=== PATIENT | female | born 1960 | race Caucasian/White ===

== ENCOUNTER → 2016-07-28 | Outpatient (CLI) | payer OTHER ==
[~2016-07-28] MED LIST: ASPI81TA82 PO; METO50TA PO; PERC5TAB12 PO; ROSU10 PO; SYNT137T PO
[2016-07-28 07:00] LABS: AUTOMATED NEUTROPHIL # 5.7 TH/MM3 (1.8-7.7); BASOPHIL # 0.1 TH/MM3 (0-0.2); EOSINOPHIL # 0.1 TH/MM3 (0-0.4); EOSINOPHIL % 1.2 % (0.0-4.0); HEMATOCRIT 45.4 % (35.0-46.0); HEMO FLAGS DIFF FINAL; LYMPH % 40.5 % (9.0-44.0); LYMPHOCYTE # 4.6 TH/MM3 (1.0-4.8); MEAN CELL VOLUME 91.9 FL (80.0-100.0); MEAN CORPUSCULAR HEMOGLOBIN 31.1 PG (27.0-34.0); MEAN CORPUSCULAR HGB CONC 33.9 % (32.0-36.0); MONO % 6.8 % (0.0-8.0); NEUT % 50.5 % (16.0-70.0); PLATELET COUNT 285 TH/MM3 (150-450); RED BLOOD COUNT 4.94 MIL/MM3 (4.00-5.30); RED CELL DISTRIBUTION WIDTH 16.1 % (11.6-17.2); WHITE BLOOD COUNT 11.3 TH/MM3 (4.0-11.0)
[2016-07-28 07:43] LABS: ALKALINE PHOSPHATASE 117 U/L (45-117); FREE T4 1.69 NG/DL (0.76-1.46); TOTAL BILIRUBIN ADULT 1.3 MG/DL (0.2-1.0)
[2016-07-28 07:53] LABS: ALT (GPT) 746 U/L (10-53); ANION GAP 9 MEQ/L (5-15); AST (GOT) 311 U/L (15-37); BLOOD UREA NITROGEN 19 MG/DL (7-18); CHLORIDE 103 MEQ/L (98-107); GLOMERULAR FILTRATION RATE 78 ML/MIN (>89); GLUCOSE,FASTING 121 MG/DL (74-99); LDL CHOLESTEROL 109 MG/DL (0-99); POTASSIUM 4.5 MEQ/L (3.5-5.1); SODIUM (NA) 136 MEQ/L (136-145)
== END ==
LOC: CLAB 06:35
PROVIDERS: ATTEND Internal Medicine
DX: E78.5 Hyperlipidemia, unspecified (principal); E03.9 Hypothyroidism, unspecified; I10 Essential (primary) hypertension
CPT/HCPCS: 36415; 80053; 80061; 84439; 84443; 84480; 85025

== ENCOUNTER → 2016-09-23 | Outpatient (CLI) | payer OTHER ==
[2016-09-23 07:10] LABS: AUTOMATED NEUTROPHIL # 2.9 TH/MM3 (1.8-7.7); BASOPHIL # 0.1 TH/MM3 (0-0.2); BASOPHIL % 0.7 % (0.0-2.0); EOSINOPHIL # 0.2 TH/MM3 (0-0.4); HEMATOCRIT 45.6 % (35.0-46.0); HEMO FLAGS DIFF FINAL; LYMPH % 53.6 % (9.0-44.0); LYMPHOCYTE # 4.5 TH/MM3 (1.0-4.8); MEAN CELL VOLUME 91.2 FL (80.0-100.0); MEAN CORPUSCULAR HEMOGLOBIN 30.8 PG (27.0-34.0); MEAN CORPUSCULAR HGB CONC 33.8 % (32.0-36.0); MONO % 8.8 % (0.0-8.0); NEUT % 34.9 % (16.0-70.0); PLATELET COUNT 228 TH/MM3 (150-450); RED CELL DISTRIBUTION WIDTH 13.8 % (11.6-17.2); WHITE BLOOD COUNT 8.4 TH/MM3 (4.0-11.0)
[2016-09-23 07:23] LABS: BICARBONATE 25.3 MEQ/L (21.0-32.0)
[2016-09-23 07:24] LABS: INDIRECT BILIRUBIN 0.3 MG/DL (0.0-0.8); POTASSIUM 4.3 MEQ/L (3.5-5.1); TOTAL BILIRUBIN ADULT 0.4 MG/DL (0.2-1.0)
== END ==
LOC: CLAB 06:33
PROVIDERS: ATTEND Surgery Trauma Surgery
DX: R10.11 Right upper quadrant pain (principal)
CPT/HCPCS: 36415; 80048; 80076; 85025

== ENCOUNTER → 2016-09-26 | Day surgery (SDC) | payer OTHER ==
[~2016-09-26] MED LIST changes: +ACETAMINOPHEN 1000 MG/100 ML VIAL IV ONE; +BUPIVACAINE/EPINEPHRINE 0.25% PF 10 ML VIAL ONE; +KETOROLAC TROMETHAMINE 30 MG/ML (IVP) VIAL IV PUSH ONE; +LACTATED RINGER'S 1000 ML INJ 1,000 ML ONE; +MEPERIDINE HCL 50 MG/ML VIAL ONE; +MIDAZOLAM HCL 2 MG/2 ML VIAL ONE; +ONDANSETRON HCL 4 MG/2 ML VIAL IV PUSH ONE; +PROPOFOL 200 MG/20 ML AMP IV ONE; +VANCOMYCIN HCL 1000 MG VIAL ONE; +ceFAZolin INJ 1,000 MG VIAL ONE
--- NOTE | 2016-09-26 18:28 | MP ---
cc: DEVORA MAN MD, MICHAEL A. MD DATE OF SURGERY 09/26/16 PREOPERATIVE DIAGNOSIS Acute cholecystitis Elevated liver tests after statin therapy POSTOPERATIVE DIAGNOSIS Same ANESTHESIA LMA. SURGEON Kun Leon MD ESTIMATED BLOOD LOSS 30 mL FLUIDS 850 mL crystalloid COMPLICATIONS None. DRAINS None. SPECIMEN Gallbladder and Yusef-Cut liver biopsies to pathology. LEAD ARCHITECT Jonathan Lundberg, TURNER IN. The TURNER IN was present from the beginning to the end of the case assisting in all portions of the procedure. The TURNER IN presence was necessary for appropriate retraction, dissection, visualization and resection of the important anatomical structures during the procedure. The skill set of the TURNER IN is medically and surgically necessary to safely complete the procedure. PROCEDURE IN DETAIL The patient was taken to the operating room and placed on the operating table in the supine position. After an adequate level of general endotracheal anesthesia was achieved, the abdomen was prepped and draped in usual fashion. Time-out was taken confirming the correct patient, site and procedure to be performed. Skin and subcutaneous tissue was infiltrated with local anesthetic and an incision made through the umbilicus and carried through the fascia sharply. The peritoneal cavity was directly visualized. A 12 mm balloon trocar was inserted and the balloon inflated. The abdomen was insufflated. The patient was placed in reverse Trendelenburg position. Three 5 mm trocars were placed with the first to the right of the falciform ligament and second and third in the right subcostal region. All entered the abdominal cavity under direct vision uneventfully. The fundus of the gallbladder was then grasped and retracted upward. Omental adhesions were taken down from the liver with gentle blunt dissection and electrocautery. The cystic duct infundibular junction and cystic artery were both then circumferentially dissected in this patient. There was a relatively short cystic artery and care was taken to preserve a branch of the right hepatic artery diving into the liver. The cystic artery was doubly clipped proximally, singly clipped on the gallbladder side and divided. The cystic duct was then doubly clipped distally, singly clipped on the gallbladder side and divided. Cholangiogram was not obtained as the patient's liver function tests were essentially normal, common duct was not dilated and the anatomy was clearly identified. The gallbladder was then dissected off of the liver bed with electro dissection. The gallbladder was placed into an EndoCatch device and removed via the umbilical port while observing via the upper 5 mm trocar site. The laparoscope was placed into the umbilical port once again and the upper abdomen revisualized. The liver bed was made hemostatic. The cystic artery stump and cystic duct stump were revisualized and seen to be clean and dry. Two cores were taken utilizing a Yusef-Cut biopsy needle via separate stab incision. After good cores were obtained, absolute hemostasis was achieved on the liver with electrocautery. The liver bed, cystic artery stump and cystic duct stump were all reexamined once again and seen to be clean and dry. All irrigation was aspirated from the abdominal cavity. With hemostasis assured, insufflation was discontinued. During desufflation, the upper abdominal trocars were removed under direct vision. No bleeding was noted from the trocar sites. The laparoscope and umbilical port were then removed. The fascia was closed in the umbilicus with both simple interrupted and [id number] 0 Vicryl suture. The remaining local anesthetic was injected into all of the trocar sites and the skin closed at each of the trocar sites with 4-0 Vicryl in an interrupted buried fashion. All trocar sites were dressed with Steri-Strips. The patient was extubated and taken back to the recovery room in stable condition. She tolerated the procedure well. MD GISELE Reece/ /9:43 AM /6:04 PM KIM
== END | disposition home or self-care (01) ==
LOC: ESDC 06:43
PROVIDERS: ATTEND Surgery Trauma Surgery
DX: K81.0 Acute cholecystitis (principal); R79.89 Other specified abnormal findings of blood chemistry
CPT/HCPCS: 00790; 47001; 47562; 88304; 88307; 88313; J0131; J0690; J1885; J2175; J2250; J2405; J3010; J3370; J7120

== ENCOUNTER → 2017-04-24 | Outpatient (CLI) | payer OTHER ==
[~2017-04-24] MED LIST changes: -ACETAMINOPHEN 1000 MG/100 ML VIAL IV ONE; +AZIT500T2 PO; -BUPIVACAINE/EPINEPHRINE 0.25% PF 10 ML VIAL ONE; +ESTR42.5V VAGINAL; +FLUT1SPR5 EACH NARE; -KETOROLAC TROMETHAMINE 30 MG/ML (IVP) VIAL IV PUSH ONE; -LACTATED RINGER'S 1000 ML INJ 1,000 ML ONE; +LISI10TA3 PO; -MEPERIDINE HCL 50 MG/ML VIAL ONE; -METO50TA PO; -MIDAZOLAM HCL 2 MG/2 ML VIAL ONE; -ONDANSETRON HCL 4 MG/2 ML VIAL IV PUSH ONE; -PROPOFOL 200 MG/20 ML AMP IV ONE; -ROSU10 PO; -VANCOMYCIN HCL 1000 MG VIAL ONE; -ceFAZolin INJ 1,000 MG VIAL ONE
[2017-04-24 07:30] LABS: CHOLESTEROL/ HDL RATIO 4.56 RATIO; HDL CHOLESTEROL 47.8 MG/DL (40.0-60.0)
== END ==
LOC: CLAB 06:41
PROVIDERS: ATTEND Family Medicine
DX: E78.5 Hyperlipidemia, unspecified (principal)
CPT/HCPCS: 36415; 80061

== ENCOUNTER → 2017-06-15 | Outpatient (CLI) | payer OTHER ==
[2017-06-15 07:06] LABS: AUTOMATED NEUTROPHIL # 4.5 TH/MM3 (1.8-7.7); BASOPHIL # 0.1 TH/MM3 (0-0.2); BASOPHIL % 0.5 % (0.0-2.0); EOSINOPHIL # 0.1 TH/MM3 (0-0.4); EOSINOPHIL % 1.2 % (0.0-4.0); HEMATOCRIT 46.2 % (35.0-46.0); HEMOGLOBIN 16.3 GM/DL (11.6-15.3); LYMPH % 45.5 % (9.0-44.0); LYMPHOCYTE # 4.3 TH/MM3 (1.0-4.8); MEAN CELL VOLUME 88.9 FL (80.0-100.0); MEAN CORPUSCULAR HEMOGLOBIN 31.4 PG (27.0-34.0); MEAN CORPUSCULAR HGB CONC 35.3 % (32.0-36.0); MEAN PLATELET VOLUME 8.6 FL (7.0-11.0); MONO % 5.7 % (0.0-8.0); MONOCYTE # 0.5 TH/MM3 (0-0.9); NEUT % 47.1 % (16.0-70.0); PLATELET COUNT 244 TH/MM3 (150-450); RED BLOOD COUNT 5.19 MIL/MM3 (4.00-5.30); RED CELL DISTRIBUTION WIDTH 12.9 % (11.6-17.2); WHITE BLOOD COUNT 9.5 TH/MM3 (4.0-11.0)
[2017-06-15 07:40] LABS: ALKALINE PHOSPHATASE 55 U/L (45-117); TOTAL BILIRUBIN ADULT 0.3 MG/DL (0.2-1.0); TOTAL PROTEIN 7.7 GM/DL (6.4-8.2)
[2017-06-15 07:53] LABS: ALBUMIN 3.8 GM/DL (3.4-5.0); ALT (GPT) 59 U/L (10-53); AST (GOT) 38 U/L (15-37); BICARBONATE 26.2 MEQ/L (21.0-32.0); BLOOD UREA NITROGEN 17 MG/DL (7-18); CHLORIDE 103 MEQ/L (98-107); CREATININE 0.81 MG/DL (0.50-1.00); GLOMERULAR FILTRATION RATE 73 ML/MIN (>89); GLUCOSE,FASTING 96 MG/DL (74-99); SODIUM (NA) 136 MEQ/L (136-145)
== END ==
LOC: CLAB 06:38
PROVIDERS: ATTEND Family Medicine
DX: R10.11 Right upper quadrant pain (principal)
CPT/HCPCS: 36415; 80053; 84443; 85025

== ENCOUNTER → 2017-09-04 | Outpatient (CLI) | DX: E78.5 Hyperlipidemia, unspecified (principal); T50.905D Adverse effect of unspecified drugs, medicaments and biological substances, subsequent encounter ==